=== PATIENT | female | born 1950 | race Caucasian/White ===

== ENCOUNTER 2018-06-26 10:43 | Emergency (ER) | payer MEDICARE, OTHER ==
[~2018-06-26] VITALS: Ht 157.5 cm; Wt 60.0 kg
[~2018-06-26 10:43] MED LIST: DULO-31 PO; ESTR-71 TD
[2018-06-26] MEDS ORDERED: aspirin 81mg tab.chew PO ONE (11:00)
[2018-06-26] MEDS ORDERED: ketorolac tromethamine 15mg/ml inj. IV ONE (11:05)
[2018-06-26] MEDS ORDERED: dexamethasone sod phosphate 10mg/ml inj IV STA (11:05)
[2018-06-26] MEDS ORDERED: normal saline 1000ML IV soln IVB ONE (11:05)
[2018-06-26 11:17] LABS: BASOPHILS % (AUTO) 0.3 % (0-1); EOSINOPHILS % (AUTO) 0.3 % (0-6); HEMATOCRIT 37.5 % (35.0-45.0); HEMOGLOBIN 12.9 g/dl (12.0-16.0); LYMPHOCYTES % (AUTO) 12.8 % (21-51); MEAN CORPUSCULAR HGB CONC 34.4 g/dL (33.0-36.5); MEAN CORPUSCULAR VOLUME 93.2 FL (78-98); MEAN PLATELET VOLUME 7.5 FL (7.4-10.4); MONOCYTES # (AUTO) 0.5 X10'3 (0-0.9); MONOCYTES % (AUTO) 6.6 % (2-12); NEUTROPHILS # (AUTO) 6.1 X10'3 (1.8-7.7); PLATELET COUNT 187 X10'3 (140-440); RED BLOOD COUNT 4.03 X10'6 (4.20-5.60); RED CELL DISTRIBUTION WIDTH 13.7 % (11.5-14.5); WHITE BLOOD COUNT 7.6 X10'3 (4.5-11.0)
[2018-06-26] MEDS ORDERED: LIDOcaine Viscous 15ml cup MM PRN (11:20)
[2018-06-26 11:32] LABS: ALANINE AMINOTRANSFERASE 22 U/L (12-78); ALBUMIN 3.7 G/DL (3.4-5.0); ALBUMIN/GLOBULIN RATIO 1.2 (1.1-1.5); ALKALINE PHOSPHATASE 39 IU/L (46-116); ANION GAP 11 (8-16); ASPARTATE AMINO TRANSFERASE 18 U/L (10-37); BILIRUBIN,TOTAL 0.7 MG/DL (0.1-1.0); BLOOD UREA NITROGEN 12 MG/DL (7-18); BUN/CREATININE RATIO 17.6 (6.6-38.0); CALCIUM 8.4 MG/DL (8.5-10.1); CHLORIDE 104 MMOL/L (99-107); CREATININE 0.68 MG/DL (0.40-0.90); GLUCOSE 102 MG/DL (70-104); POTASSIUM 3.4 MMOL/L (3.5-5.1); SODIUM 141 MMOL/L (135-145); TOTAL PROTEIN 6.9 G/DL (6.4-8.2); eGFR 86 ML/MIN
[2018-06-26 11:39] LABS: MAGNESIUM 1.9 MG/DL (1.5-2.4)
[2018-06-26] MEDS ORDERED: AMOX-580 PO (13:22)
[2018-06-26] MEDS ORDERED: PRED20TA PO (13:23)
[2018-06-26] MEDS ORDERED: LIDO15SO2 PO (13:53)
[2018-06-26 14:02] VITALS: BP 113/74
== END 2018-06-26 14:04 | disposition home or self-care (01) ==
LOC: ER 10:44
DX: J02.9 Acute pharyngitis, unspecified (principal); R07.81 Pleurodynia; R06.02 Shortness of breath; J45.909 Unspecified asthma, uncomplicated; Z88.5 Allergy status to narcotic agent; Z79.899 Other long term (current) drug therapy
CPT/HCPCS: 36415; 71045; 80053; 83735; 83880; 84484; 85025; 93005; 96374; 96375; 99284; J1100; J1885; J7030

== ENCOUNTER 2018-09-12 10:26 | Outpatient (CLI) | payer OTHER ==
[~2018-09-12 10:26] MED LIST changes: +LIDO15SO2 PO
[2018-09-13 11:22] LABS: MUMPS ANTIBODIES, IGG >300.0 AU/mL (Immune >10.9); RUBEOLA ANTIBODIES, IGG >300.0 AU/mL (Immune >29.9)
== END 2018-09-12 23:59 | disposition home or self-care (01) ==
LOC: LAB 10:26
PROVIDERS: ATTEND Family Medicine
DX: Z20.828 Contact with and (suspected) exposure to other viral communicable diseases (principal)
CPT/HCPCS: 36415; 86735; 86762; 86765

== ENCOUNTER 2018-09-19 10:03 | Day surgery (SDC) | payer OTHER, MEDICARE ==
[~2018-09-19] VITALS: Ht 157.5 cm; Wt 61.4 kg
[2018-09-19] MEDS ORDERED: MIDAZolam 5mg/5ml vial ONE (10:08)
[2018-09-19] MEDS ORDERED: fentaNYL/PF 50MCG/1 ML 2ML syringe ONE (10:08)
[2018-09-19 10:10] VITALS: BP 136/76
[2018-09-19 10:39] VITALS: BP 105/61
[2018-09-19 10:49] VITALS: BP 110/53
[2018-09-19 10:59] VITALS: BP 114/72
[2018-09-19 11:09] VITALS: BP 121/80
== END 2018-09-19 11:15 | disposition home or self-care (01) ==
LOC: GI LAB 10:03
PROVIDERS: ATTEND Internal Medicine Gastroenterology
DX: Z12.11 Encounter for screening for malignant neoplasm of colon (principal); K57.30 Diverticulosis of large intestine without perforation or abscess without bleeding; Z80.0 Family history of malignant neoplasm of digestive organs
CPT/HCPCS: 45378; 99152; J2250; J3010; J7030; 99153; A4620

== ENCOUNTER 2018-12-18 12:54 | Outpatient (CLI) | payer OTHER ==
[~2018-12-18 12:54] MED LIST changes: -LIDO15SO2 PO
[2018-12-18 13:45] LABS: BASOPHILS % (AUTO) 0.8 % (0-1); EOSINOPHILS # (AUTO) 0.1 X10'3 (0-0.9); EOSINOPHILS % (AUTO) 2.2 % (0-6); HEMOGLOBIN 13.6 g/dl (12.0-16.0); LYMPHOCYTES # (AUTO) 1.8 X10'3 (1.1-4.8); LYMPHOCYTES % (AUTO) 33.3 % (21-51); MEAN CORPUSCULAR HEMOGLOBIN 31.4 PG (27.0-31.0); MEAN CORPUSCULAR HGB CONC 33.3 g/dL (33.0-36.5); MEAN CORPUSCULAR VOLUME 94.3 FL (78-98); MEAN PLATELET VOLUME 8.2 FL (7.4-10.4); MONOCYTES # (AUTO) 0.4 X10'3 (0-0.9); MONOCYTES % (AUTO) 7.1 % (2-12); NEUTROPHILS % (AUTO) 56.6 % (42-75); PLATELET COUNT 198 X10'3 (140-440); RED BLOOD COUNT 4.34 X10'6 (4.20-5.60); RED CELL DISTRIBUTION WIDTH 14.1 % (11.5-14.5); WHITE BLOOD COUNT 5.3 X10'3 (4.5-11.0)
[2018-12-18 14:13] LABS: ALANINE AMINOTRANSFERASE 27 U/L (12-78); ALBUMIN/GLOBULIN RATIO 1.3 (1.1-1.5); ALKALINE PHOSPHATASE 36 IU/L (46-116); ANION GAP 8 (8-16); ASPARTATE AMINO TRANSFERASE 14 U/L (10-37); BILIRUBIN,TOTAL 0.6 MG/DL (0.1-1.0); BLOOD UREA NITROGEN 17 MG/DL (7-18); BUN/CREATININE RATIO 23.6 (6.6-38.0); CALCIUM 8.7 MG/DL (8.5-10.1); CHLORIDE 106 MMOL/L (99-107); CHOL/HDL RATIO 2.8 (0.00-4.99); CHOLESTEROL 190 MG/DL (0-200); CREATININE 0.72 MG/DL (0.40-0.90); GLUCOSE 92 MG/DL (70-104); HDL CHOLESTEROL 68 MG/DL (35-60); LDL CHOLESTEROL 109 MG/DL (50-100); POTASSIUM 4.1 MMOL/L (3.5-5.1); SODIUM 141 MMOL/L (135-145); TOTAL CARBON DIOXIDE 27.2 MMOL/L (24-32); TOTAL PROTEIN 7.1 G/DL (6.4-8.2); TRIGLYCERIDES 95 MG/DL (20-135); eGFR 80 ML/MIN
== END 2018-12-18 23:59 | disposition home or self-care (01) ==
LOC: LAB 12:54
PROVIDERS: ATTEND Family Medicine
DX: Z00.00 Encounter for general adult medical examination without abnormal findings (principal); A09 Infectious gastroenteritis and colitis, unspecified; R53.83 Other fatigue; Z82.62 Family history of osteoporosis; Z86.2 Personal history of diseases of the blood and blood-forming organs and certain disorders involving the immune mechanism; Z88.5 Allergy status to narcotic agent; Z72.89 Other problems related to lifestyle
CPT/HCPCS: 36415; 80053; 80061; 83735; 84439; 84443; 85025; 85651

== ENCOUNTER 2019-03-27 09:22 | Outpatient (CLI) | payer OTHER | END 2019-03-27 23:59 | disposition home or self-care (01) | LOC: RAD 09:22 | PROVIDERS: ATTEND Orthopaedic Surgery | DX: M47.816 Spondylosis without myelopathy or radiculopathy, lumbar region (principal); M48.07 Spinal stenosis, lumbosacral region; M43.16 Spondylolisthesis, lumbar region; M46.05 Spinal enthesopathy, thoracolumbar region; M48.04 Spinal stenosis, thoracic region; M76.892 Other specified enthesopathies of left lower limb, excluding foot; M43.8X5 Other specified deforming dorsopathies, thoracolumbar region; Z96.641 Presence of right artificial hip joint; Z98.890 Other specified postprocedural states; Z96.652 Presence of left artificial knee joint | CPT/HCPCS: 72074; 72100; 72190; 73564 ==

== ENCOUNTER 2020-02-09 08:19 | Outpatient (CLI) | payer BC ==
[2020-02-09 09:44] LABS: EOSINOPHILS # (AUTO) 0.1 X10'3 (0-0.9); EOSINOPHILS % (AUTO) 3.1 % (0-6); HEMATOCRIT 39.3 % (35.0-45.0); HEMOGLOBIN 13.2 g/dl (12.0-16.0); LYMPHOCYTES # (AUTO) 1.5 X10'3 (1.1-4.8); LYMPHOCYTES % (AUTO) 34.8 % (21-51); MEAN CORPUSCULAR HEMOGLOBIN 31.3 PG (27.0-31.0); MEAN CORPUSCULAR HGB CONC 33.6 g/dL (33.0-36.5); MEAN CORPUSCULAR VOLUME 93.4 FL (78-98); MEAN PLATELET VOLUME 8.1 FL (7.4-10.4); MONOCYTES # (AUTO) 0.3 X10'3 (0-0.9); MONOCYTES % (AUTO) 6.9 % (2-12); NEUTROPHILS # (AUTO) 2.3 X10'3 (1.8-7.7); NEUTROPHILS % (AUTO) 54.2 % (42-75); PLATELET COUNT 225 X10'3 (140-440); RED CELL DISTRIBUTION WIDTH 13.2 % (11.5-14.5); WHITE BLOOD COUNT 4.3 X10'3 (4.5-11.0)
[2020-02-09 10:15] LABS: ALANINE AMINOTRANSFERASE 24 U/L (12-78); ALBUMIN 3.8 G/DL (3.4-5.0); ALBUMIN/GLOBULIN RATIO 1.3 (1.1-1.5); ALKALINE PHOSPHATASE 38 IU/L (46-116); ANION GAP 4 (8-16); ASPARTATE AMINO TRANSFERASE 21 U/L (10-37); BILIRUBIN,TOTAL 0.8 MG/DL (0.1-1.0); BLOOD UREA NITROGEN 12 MG/DL (7-18); BUN/CREATININE RATIO 16.9 (6.6-38.0); C-REACTIVE PROTEIN 0.26 MG/DL (0.0-0.5); CALCIUM 8.5 MG/DL (8.5-10.1); CHLORIDE 105 MMOL/L (99-107); CHOL/HDL RATIO 2.4 (0.00-4.99); CHOLESTEROL 180 MG/DL (0-200); CREATININE 0.71 MG/DL (0.40-0.90); GLUCOSE 94 MG/DL (70-104); HDL CHOLESTEROL 76 MG/DL (35-60); LDL CHOLESTEROL 98 MG/DL (50-100); PHOSPHORUS 3.1 MG/DL (2.3-4.5); POTASSIUM 3.8 MMOL/L (3.5-5.1); SODIUM 138 MMOL/L (135-145); TOTAL CARBON DIOXIDE 28.6 MMOL/L (24-32); TOTAL PROTEIN 6.8 G/DL (6.4-8.2); TRIGLYCERIDES 51 MG/DL (20-135); eGFR 81 ML/MIN
[2020-02-10 13:55] LABS: MICROALB/CRT, RATIO <7 mg/g creat (0-29)
== END 2020-02-09 23:59 | disposition home or self-care (01) ==
LOC: LAB 08:19
PROVIDERS: ATTEND Family Medicine
DX: Z00.00 Encounter for general adult medical examination without abnormal findings (principal)
CPT/HCPCS: 36415; 80053; 80061; 82043; 82306; 82330; 82570; 82607; 82746; 83970; 84100; 84439; 84443; 85025; 85651; 86140

== ENCOUNTER → 2020-02-17 | Outpatient (CLI) | payer BC | END | disposition home or self-care (01) | LOC: VAS 08:22 | PROVIDERS: ATTEND Family Medicine | DX: Z82.49 Family history of ischemic heart disease and other diseases of the circulatory system (principal) | CPT/HCPCS: 93978 ==

== ENCOUNTER → 2020-02-19 | Outpatient (CLI) | payer BC ==
[~2020-02-19] MED LIST changes: +iohexol 350 MG/ML 50ML vial IV ONE; +iohexol 350MG/ML 100ml bottle IV ONE
== END | disposition home or self-care (01) ==
LOC: 64 CT 13:27 → EEVIPCON 14:00
PROVIDERS: ATTEND Family Medicine
DX: I65.23 Occlusion and stenosis of bilateral carotid arteries (principal); I70.0 Atherosclerosis of aorta; M47.816 Spondylosis without myelopathy or radiculopathy, lumbar region; M19.90 Unspecified osteoarthritis, unspecified site; K57.30 Diverticulosis of large intestine without perforation or abscess without bleeding; N28.1 Cyst of kidney, acquired; I70.201 Unspecified atherosclerosis of native arteries of extremities, right leg
CPT/HCPCS: 75635; 93880; Q9967

== ENCOUNTER 2020-04-19 15:25 | Emergency (ER) | payer BC, OTHER ==
[~2020-04-19] VITALS: Ht 157.5 cm; Wt 63.6 kg
[~2020-04-19 15:25] MED LIST changes: -iohexol 350 MG/ML 50ML vial IV ONE; -iohexol 350MG/ML 100ml bottle IV ONE
[2020-04-19 15:47] VITALS: BP 116/74
[2020-04-19] MEDS ORDERED: PRED20TA PO (16:15)
[2020-04-19] MEDS ORDERED: ALBU6.7H9 INH (16:15)
[2020-04-19] MEDS ORDERED: AZIT250T2 PO (16:15)
== END 2020-04-19 16:30 | disposition home or self-care (01) ==
LOC: ER 15:25
DX: U07.1 COVID-19 (principal); J45.909 Unspecified asthma, uncomplicated; Z88.5 Allergy status to narcotic agent; Z79.899 Other long term (current) drug therapy
CPT/HCPCS: 71045; 99283

== ENCOUNTER 2020-11-01 05:44 | Day surgery (SDC) | payer BC ==
[2020-10-27 12:20] LABS: BASOPHILS % (AUTO) 0.7 % (0-1); EOSINOPHILS # (AUTO) 0.1 X10'3 (0-0.9); EOSINOPHILS % (AUTO) 1.6 % (0-6); LYMPHOCYTES # (AUTO) 1.4 X10'3 (1.1-4.8); LYMPHOCYTES % (AUTO) 33.6 % (21-51); MEAN CORPUSCULAR HEMOGLOBIN 31.3 PG (27.0-31.0); MEAN CORPUSCULAR HGB CONC 33.7 g/dL (33.0-36.5); MEAN PLATELET VOLUME 7.4 FL (7.4-10.4); MONOCYTES # (AUTO) 0.3 X10'3 (0-0.9); MONOCYTES % (AUTO) 6.7 % (2-12); NEUTROPHILS # (AUTO) 2.4 X10'3 (1.8-7.7); NEUTROPHILS % (AUTO) 57.4 % (42-75); PRE OP HEMATOCRIT 39.7 % (35.0-45.0); PRE OP HEMOGLOBIN 13.4 g/dL (12.0-16.0); PRE OP PLATELET COUNT 220 X10'3 (140-440); RED BLOOD COUNT 4.27 X10'6 (4.20-5.60); RED CELL DISTRIBUTION WIDTH 13.3 % (11.5-14.5)
[2020-10-27 12:31] LABS: PRE OP PROTIME 10.4 SECONDS (9.0-12.0)
[2020-10-27 12:37] LABS: ALBUMIN 3.9 G/DL (3.4-5.0); ALBUMIN/GLOBULIN RATIO 1.3 (1.1-1.5); ALKALINE PHOSPHATASE 40 IU/L (46-116); BLOOD UREA NITROGEN 13 MG/DL (7-18); BUN/CREATININE RATIO 19.1 (6.6-38.0); CALCIUM 8.9 MG/DL (8.5-10.1); CHLORIDE 105 MMOL/L (99-107); CREATININE 0.68 MG/DL (0.40-0.90); PRE OP ALT 19 U/L (30-65); PRE OP ANION GAP 7 (8-16); PRE OP AST 21 U/L (10-37); PRE OP BILIRUB, TOTAL 0.6 MG/DL (0.0-1.0); PRE OP GLUCOSE 96 MG/DL (70-104); PRE OP POTASSIUM 4.4 MMOL/L (3.4-5.1); PRE OP SODIUM 142 MMOL/L (135-145); TOTAL CARBON DIOXIDE 30.3 MMOL/L (24-32); eGFR 85 ML/MIN
[2020-11-01] VITALS (22 sets, daily range): BP systolic 80–116; BP diastolic 50–78
[~2020-11-01] VITALS: Ht 157.5 cm; Wt 63.4 kg
[~2020-11-01 05:44] MED LIST changes: +ALBU8.5H8 IH; -ESTR-71 TD; +VANCOMYCIN INJ 1000 MG in NORMAL SALINE 250ml IV.SOLN IV ONE; +cefazolin/dext.iso 2gm/100ml IV ONE; +famotidine 20mg tablet PO ONE; +tranexamic acid 1gm/0.7% sal. 100 ML IV ONE
[2020-11-01] MEDS: ringers solution, lacted 1,000 ML IV SCH ×3 (06:26→13:15)
[2020-11-01] MEDS ORDERED: ketorolac trometh. 30mg/ml inj. ONE (06:42)
[2020-11-01] MEDS ORDERED: cloNIDine hcl/PF 100mcg/ml inj ONE ×2 (06:42→07:16)
[2020-11-01] MEDS ORDERED: ROPIVAcaine 0.5% (5mg/ml) 30ml vial ONE ×2 (06:42→10:05)
[2020-11-01] MEDS ORDERED: vancomycin 1,000mg inj ONE (07:09)
[2020-11-01] MEDS ORDERED: tetracaine 1% (10mg/ml) pres. free inj. ONE (07:16)
[2020-11-01] MEDS ORDERED: MIDAZolam 1mg/ml 10ml vial ONE (07:20)
[2020-11-01] MEDS ORDERED: fentaNYL/PF 50MCG/1 ML 2ML syringe ONE (07:20)
[2020-11-01] MEDS ORDERED: morphine 4 MG/ML inj SYRINge IV PRN (08:50)
[2020-11-01] MEDS ORDERED: ondansetron/PF 4mg/2ml inj IV PRN ×2 (08:50→10:30)
[2020-11-01] MEDS ORDERED: ringers solution, lacted 1,000 ML IV SCH (08:50)
[2020-11-01] MEDS ORDERED: proCHLORperazine 10 MG/2 ml inj IV PRN (08:50)
[2020-11-01] MEDS ORDERED: meperidine/PF 25mg/ml syringe IV PRN ×3 (08:50)
[2020-11-01] MEDS ORDERED: morphine 2 MG/ML inj. syringe IV PRN (08:50)
[2020-11-01] MEDS ORDERED: propofol inj 20 ML IV ONE (10:05)
--- NOTE | 2020-11-01 10:29 | NUR ---
Received from OR via , accompanied by Anesthesiologist DR CARVALHO and report given by Anesthesiolgist. PT PRESENTS WITH 18G LEFT HAND, LEFT KNEE DRESSING WITH WRAP, KEYLA AND POWDER PACK, DRESSING DRY AND INTACT. VSS. Addendum: 11/01/20 at 1039 by Yaz Varela RN, RN Amended: Links added.
[2020-11-01] MEDS ORDERED: HYDROmorphone 1 mg/ml syringe IV PRN (10:30)
[2020-11-01] MEDS ORDERED: bisacodyl 10mg suppository rectal RC PRN (10:30)
[2020-11-01] MEDS ORDERED: diphenhydrAMINE 25mg capsule PO PRN ×2 (10:30)
[2020-11-01] MEDS ORDERED: HYDROcodone/acetaminophen 10/325mg tab PO PRN (10:30)
[2020-11-01] MEDS ORDERED: magnesium hydroxide 30ml (MOM) UD suspension PO PRN (10:30)
[2020-11-01] MEDS ORDERED: albuterol 2.5 MG/3 ML nebule NEB PRN (10:30)
--- NOTE | 2020-11-01 11:24 | NUR ---
PT SITTING UP IN BED EATING ICE CHIOS, PT TOLERATING WELL. PT REORTS PAIN 0/10. Addendum: 11/01/20 at 1125 by Yaz Varela RN, RN Amended: Links added.
--- NOTE | 2020-11-01 11:49 | NUR ---
PATIENT HAS MET ALL CRITERIA FOR TRANSFER TO THE [facility]. VSS. DRESSINGS INTACT. BED LOW, CALL LIGHT PRESENT AND 2 RAILS UP. MISAEL BLACK PRESENT TO ACCEPT CARE OF PATIENT AND REPORT HAS BEEN CALLED. ALL QUESTIONS ANSWERED TO ACCEPTING RN. Addendum: 11/01/20 at 1157 by Yaz Lira - WAYNE RN Amended: Links added.
[2020-11-01] MEDS: potassium Cl 20mEq in NS 1,000 ML IV SCH (12:56)
[2020-11-01] MEDS: ceFAZolin/D5W- 1GM premix 50 ML IV SCH (16:17)
[2020-11-01] MEDS: aspirin 81mg tablet.DR PO SCH (17:38)
[2020-11-01] MEDS: HYDROcodone/acetaminophen 10/325mg tab PO PRN ×2 (17:40→21:41)
--- NOTE | 2020-11-01 18:40 | NUR ---
Problems reprioritized. Patient report given, questions answered & plan of care reviewed with Teresita BLACK.
[2020-11-01] MEDS ORDERED: vancomycin/NS 1 GM ADD-VANTAGE 250 ML IV SCH (20:00)
[2020-11-01] MEDS ORDERED: sennosides 8.6mg tablet PO SCH (21:00)
[2020-11-01] MEDS ORDERED: duloxetine 30mg CAPSULE.DR PO SCH (21:00)
[2020-11-02] MEDS: ceFAZolin/D5W- 1GM premix 50 ML IV SCH (00:46)
[2020-11-02] MEDS: HYDROcodone/acetaminophen 10/325mg tab PO PRN (01:13)
[2020-11-02] MEDS: potassium Cl 20mEq in NS 1,000 ML IV SCH (01:13)
[2020-11-02 02:00] VITALS: BP 89/47
[2020-11-02] MEDS: acetaminophen 325mg tablet PO PRN ×3 (05:35→14:00)
[2020-11-02 06:00] VITALS: BP 93/56
--- NOTE | 2020-11-02 06:34 | NUR ---
Patient in room [facility]TH[facility] 4017. I have received report from WAYNE Lo and had the opportunity to ask questions and assume patient care.
[2020-11-02 07:09] LABS: BASOPHILS % (AUTO) 0.3 % (0-1); EOSINOPHILS % (AUTO) 0.4 % (0-6); HEMATOCRIT 29.3 % (35.0-45.0); HEMOGLOBIN 10.1 g/dl (12.0-16.0); LYMPHOCYTES # (AUTO) 1.1 X10'3 (1.1-4.8); LYMPHOCYTES % (AUTO) 14.5 % (21-51); MEAN CORPUSCULAR HEMOGLOBIN 32.2 PG (27.0-31.0); MEAN CORPUSCULAR HGB CONC 34.6 g/dL (33.0-36.5); MEAN CORPUSCULAR VOLUME 93.1 FL (78-98); MEAN PLATELET VOLUME 8.2 FL (7.4-10.4); MONOCYTES # (AUTO) 0.5 X10'3 (0-0.9); MONOCYTES % (AUTO) 6.8 % (2-12); NEUTROPHILS # (AUTO) 6.1 X10'3 (1.8-7.7); PLATELET COUNT 164 X10'3 (140-440); RED BLOOD COUNT 3.15 X10'6 (4.20-5.60); RED CELL DISTRIBUTION WIDTH 12.8 % (11.5-14.5); WHITE BLOOD COUNT 7.8 X10'3 (4.5-11.0)
[2020-11-02 07:37] LABS: ALANINE AMINOTRANSFERASE 20 U/L (12-78); ALBUMIN 2.7 G/DL (3.4-5.0); ALKALINE PHOSPHATASE 33 IU/L (46-116); ANION GAP 10 (8-16); ASPARTATE AMINO TRANSFERASE 17 U/L (10-37); BILIRUBIN,TOTAL 0.4 MG/DL (0.1-1.0); BLOOD UREA NITROGEN 12 MG/DL (7-18); BUN/CREATININE RATIO 16.2 (6.6-38.0); CALCIUM 7.7 MG/DL (8.5-10.1); CHLORIDE 106 MMOL/L (99-107); CREATININE 0.74 MG/DL (0.40-0.90); GLUCOSE 132 MG/DL (70-104); SODIUM 139 MMOL/L (135-145); TOTAL PROTEIN 5.3 G/DL (6.4-8.2); eGFR 77 ML/MIN
[2020-11-02] MEDS ORDERED: duloxetine 30mg CAPSULE.DR PO SCH (08:00)
[2020-11-02] MEDS: aspirin 81mg tablet.DR PO SCH (10:21)
--- NOTE | 2020-11-02 11:47 | NUR ---
Joint surgery consult: Pt s/p L knee surgery this admit seen by MALA for written/verbal high protein ed w/ RD contact information provided. Pt reports typically eats higher protein diet including protein bars at home. MALA reviewed protein ONS options for at home and encouraged pt to contact dietitian's office if further questions/concerns. Addendum: 11/02/20 at [address] Amended: Links added.
[2020-11-02] MEDS ORDERED: HYDR-3972 PO (11:50)
[2020-11-02] MEDS ORDERED: ASPI-1071 PO (13:22)
== END 2020-11-02 16:05 | disposition home or self-care (01) ==
LOC: PAS 05:44 → ORTHO 4S 11:54 → PAS 11-02 16:05
PROVIDERS: ATTEND Orthopaedic Surgery
DX: M17.12 Unilateral primary osteoarthritis, left knee (principal); G89.18 Other acute postprocedural pain; J45.909 Unspecified asthma, uncomplicated; Z88.5 Allergy status to narcotic agent; Z96.641 Presence of right artificial hip joint; Z98.890 Other specified postprocedural states; Z79.899 Other long term (current) drug therapy; Z79.01 Long term (current) use of anticoagulants
CPT/HCPCS: 27447; 36415; 64447; 76942; 80053; 82948; 85025; 85610; 85730; 86885; 86900; 86901; 86920; 87081; 97110; 97161; 97530; 97535; C1713; C1758; C1776; J0690; J0735; J1885; J2250; J2405; J2704; J3010; J3370; J3480; A6455; A7000; A9272; G0378; J2795; J7120

== ENCOUNTER → 2020-11-26 | Outpatient (CLI) | payer BC ==
[~2020-11-26] MED LIST changes: +ASPI-1071 PO; +HYDR-3972 PO; -VANCOMYCIN INJ 1000 MG in NORMAL SALINE 250ml IV.SOLN IV ONE; -cefazolin/dext.iso 2gm/100ml IV ONE; -famotidine 20mg tablet PO ONE; -tranexamic acid 1gm/0.7% sal. 100 ML IV ONE
== END | disposition home or self-care (01) ==
LOC: RAD 14:39
PROVIDERS: ATTEND Orthopaedic Surgery
DX: M17.12 Unilateral primary osteoarthritis, left knee (principal)
CPT/HCPCS: 73560; 73565

== ENCOUNTER → 2020-12-10 | Outpatient (CLI) | payer BC | END | disposition home or self-care (01) | LOC: LAB 14:47 | PROVIDERS: ATTEND Orthopaedic Surgery | DX: S91.002A Unspecified open wound, left ankle, initial encounter (principal); X58.XXXA Exposure to other specified factors, initial encounter; Y93.89 Activity, other specified; Y92.89 Other specified places as the place of occurrence of the external cause; Y99.8 Other external cause status | CPT/HCPCS: 87070; 87075 ==

== ENCOUNTER 2021-04-30 12:06 | Emergency (ER) | payer MEDICARE ==
[~2021-04-30] VITALS: Ht 157.5 cm; Wt 64.0 kg
[~2021-04-30 12:06] MED LIST changes: +ALBU8.5H17 IH; -ALBU8.5H8 IH
[2021-04-30 12:23] VITALS: BP 127/77
[2021-04-30] MEDS ORDERED: DEXAMETHASONE 6 MG TABLET PO ONE (12:50)
[2021-04-30] MEDS ORDERED: dexamethasone 4mg tablet PO ONE (12:50)
[2021-04-30 13:05] LABS: BASOPHILS % (AUTO) 0.5 % (0-1); EOSINOPHILS % (AUTO) 0.7 % (0-6); HEMATOCRIT 39.1 % (35.0-45.0); HEMOGLOBIN 13.3 g/dl (12.0-16.0); LYMPHOCYTES # (AUTO) 0.9 X10'3 (1.1-4.8); LYMPHOCYTES % (AUTO) 19.1 % (21-51); MEAN CORPUSCULAR VOLUME 91.3 FL (78-98); MEAN PLATELET VOLUME 7.8 FL (7.4-10.4); MONOCYTES # (AUTO) 0.4 X10'3 (0-0.9); MONOCYTES % (AUTO) 8.2 % (2-12); NEUTROPHILS # (AUTO) 3.2 X10'3 (1.8-7.7); NEUTROPHILS % (AUTO) 71.5 % (42-75); PLATELET COUNT 178 X10'3 (140-440); RED BLOOD COUNT 4.28 X10'6 (4.20-5.60); RED CELL DISTRIBUTION WIDTH 13.8 % (11.5-14.5); WHITE BLOOD COUNT 4.5 X10'3 (4.5-11.0)
[2021-04-30 13:18] LABS: APTT 26 SECONDS (22-32); D-DIMER 0.72 MG/L FEU (0-0.50)
[2021-04-30 13:20] LABS: ALANINE AMINOTRANSFERASE 31 U/L (12-78); ALBUMIN 3.8 G/DL (3.4-5.0); ALBUMIN/GLOBULIN RATIO 1.1 (1.1-1.5); ALKALINE PHOSPHATASE 60 IU/L (46-116); ANION GAP 7 (8-16); ASPARTATE AMINO TRANSFERASE 26 U/L (10-37); BILIRUBIN,TOTAL 0.9 MG/DL (0.1-1.0); BLOOD UREA NITROGEN 11 MG/DL (7-18); BUN/CREATININE RATIO 15.7 (6.6-38.0); CALCIUM 8.7 MG/DL (8.5-10.1); CHLORIDE 101 MMOL/L (99-107); GLUCOSE 110 MG/DL (70-104); POTASSIUM 3.5 MMOL/L (3.5-5.1); SODIUM 137 MMOL/L (135-145); TOTAL CARBON DIOXIDE 29.5 MMOL/L (24-32); TOTAL PROTEIN 7.4 G/DL (6.4-8.2); eGFR 82 ML/MIN
[2021-04-30 13:34] LABS: C-REACTIVE PROTEIN 1.46 MG/DL (0.0-0.5); FERRITIN 221 NG/ML (8-252); LACTATE DEHYDROGENASE 196 U/L (81-234)
[2021-04-30] MEDS ORDERED: ipratropium/albuterol 3ml nebule NEB ONE (15:05)
[2021-04-30] MEDS ORDERED: predniSONE 20 mg tablet PO ONE (15:05)
[2021-04-30] MEDS ORDERED: benzonatate 100mg capsule PO ONE (15:05)
[2021-04-30] MEDS ORDERED: BENZ-38 PO (15:12)
[2021-04-30] MEDS ORDERED: PRED20TA PO (15:12)
== END 2021-04-30 16:19 | disposition home or self-care (01) ==
LOC: ER 12:07
DX: J45.21 Mild intermittent asthma with (acute) exacerbation (principal); Z88.5 Allergy status to narcotic agent; Z79.899 Other long term (current) drug therapy; Z20.822 Contact with and (suspected) exposure to COVID-19
CPT/HCPCS: 36415; 71045; 80053; 82728; 83605; 83615; 83735; 83880; 84145; 84484; 85025; 85379; 85384; 85610; 85730; 86140; 87040; 87502; 87503; 87635; 93005; 94640; 99285; C9803; 94760; J8540